=== PATIENT | female | born 1970 | race Caucasian/White ===

== ENCOUNTER 2016-11-20 18:07 | Emergency (ER) | payer OTHER | END 2016-11-20 20:53 | disposition home or self-care (01) | LOC: ER 18:07 | DX: R13.10 Dysphagia, unspecified (principal); R11.0 Nausea; F32.9 Major depressive disorder, single episode, unspecified; G43.909 Migraine, unspecified, not intractable, without status migrainosus; Z79.899 Other long term (current) drug therapy; Z91.010 Allergy to peanuts; Z91.011 Allergy to milk products; Z91.018 Allergy to other foods | CPT/HCPCS: 36415; 96374; 96375; J1200; J2060 ==